=== PATIENT | male | born 1950 ===

== ENCOUNTER 2018-10-11 10:38 | Emergency (ER) | payer MEDICARE, BC ==
[2018-10-11] MEDS ORDERED: Lidocaine 1% MPF* 2 ML VIAL INJ ONE (12:03)
[2018-10-11] MEDS ORDERED: Lidocaine 2% MPF* 2 ML VIAL ONE (12:06)
[2018-10-11 12:32] VITALS: BP 169/89
--- NOTE | 2018-10-11 14:52 | ED ---
Laceration/Wound HPI - HPI Summary HPI Summary: Patient is a 68-year-old male presenting to the ED with an avulsion injury from a miter saw left index finger. Bleeding is well controlled on arrival. He denies any blood thinners. He states 15 years ago he had a partial amputation/ avulsion to the distal tip of this same finger and subsequently needed surgery. He denies any numbness or tingling. He is endorsing a 5/10 pain. He declines any pain medications, but is asking for a digital block. 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 Tetanus is arty up-to-date as of 2 years ago. - History of Current Complaint Stated Complaint: FINGER INJURY PER PT Time Seen by Provider: 10/11/18 10:47 Hx Obtained From: Patient Mechanism of Injury: Sharp/Blunt Trauma Onset/Duration: Sudden Onset Aggravating: Movement Alleviating: Compression Timing: Constant Onset Severity: Mild Current Severity: Mild Pain Intensity: 2 Pain Scale Used: 0-10 Numeric Associated Signs & Symptoms: Negative - Allergy/Home Medications Allergies/Adverse Reactions: Allergies Allergy/AdvReac Type Severity Reaction Status Date / Time latex Allergy Rash Verified 10/11/18 11:02 Home Medications: Home Medications amLODIPine TAB* [Norvasc 5 mg TAB*] 10 mg PO DAILY 10/11/18 [History Confirmed 10/11/18] PMH/Surg Hx/FS Hx/Imm Hx Previously Healthy: Yes Endocrine/Hematology History: Denies: Hx Diabetes Cardiovascular History: Reports: Hx Hypertension Denies: Hx Pacemaker/ICD GI History: Reports: Hx Gastroesophageal Reflux Disease - hx of- resolved History: Denies: Hx Renal Disease Sensory History: Reports: Hx Contacts or Glasses - glasses but doesn't wear very often Denies: Hx Hearing Aid Opthamlomology History: Reports: Hx Contacts or Glasses - glasses but doesn't wear very often Psychiatric History: Denies: Hx Panic Disorder - Cancer History Hx Chemotherapy: No - Surgical History Surgery Procedure, Year, and Place: LAMINECTOMY L2-L5 S1 . LEFT LEG ORIF. 2006 TORN RIGHT SHOULDER ROTATOR CUFF REPAIR Hx Anesthesia Reactions: No - Immunization History Hx Pertussis Vaccination: No Immunizations Up to Date: Yes Infectious Disease History: No Infectious Disease History: Denies: Traveled Outside the [place] in Last 30 Days - Social History Occupation: Unemployed Lives: With Family Alcohol Use: None Hx Substance Use: No Substance Use Type: Reports: None Smoking Status (MU): Never Smoked Tobacco Review of Systems Negative: Fever, Chills, Fatigue, Skin Diaphoresis Negative: Palpitations, Chest Pain Negative: Shortness Of Breath, Cough Genitourinary: Negative Positive: no symptoms reported, see HPI Negative: Arthralgia, Myalgia Skin: Negative All Other Systems Reviewed And Are Negative: Yes Physical Exam Triage Information Reviewed: Yes Vital Signs On Initial Exam: Initial Vitals Temp Pulse Resp BP Pulse Ox 97.6 F 86 20 190/108 98 10/11/18 10:40 10/11/18 10:40 10/11/18 10:40 10/11/18 10:40 10/11/18 10:40 Vital Signs Reviewed: Yes Appearance: Positive: Well-Appearing, Well-Nourished Skin: Positive: Skin Color Reflects Adequate Perfusion, Other - avulsion to the fingertip of L index Head/Face: Positive: Normal Head/Face Inspection Eyes: Positive: EOMI, Conjunctiva Clear Neck: Positive: Supple, No Lymphadenopathy Respiratory/Lung Sounds: Positive: Clear to Auscultation, Breath Sounds Present Cardiovascular: Positive: RRR, Pulses are Symmetrical in both Upper and Lower Extremities Musculoskeletal: Positive: Strength/ROM Intact Neurological: Positive: Sensory/Motor Intact, Alert, Oriented to Person Place, Time, Speech Normal Psychiatric: Positive: Affect/Mood Appropriate Diagnostics - Vital Signs Vital Signs Temp Pulse Resp BP Pulse Ox 10/11/18 12:31 98.3 F 62 14 169/89 99 10/11/18 10:40 97.6 F 86 20 190/108 98 - Laboratory Lab Statement: Any lab studies that have been ordered have been reviewed, and results considered in the medical decision making process. Laceration Repair Course/Dx - Course Course Of Treatment: During the course of treatment, the patient is evaluated for left index finger avulsion/amputation. Bleeding is well-controlled on arrival. 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 Denies any blood thinners. He is stating a 5/10 pain. Unsure if bone is involved. Tetanus is a 30 up to date. X-ray obtained which shows: Indication tip of second finger at level of diaphysis of the distal phalanx. Overlying soft tissue swelling and skin contoured deformity with subcutaneous emphysema and 2 mm retained bone fragment adjacent to the osseous imitations site. Normal articular alignment. Osteoarthritis. Digital block obtained with lidocaine 2% without epi. Patient tolerated well. Cleansed wound thoroughly with jet irrigation and 120 cc's normal saline. Surgicel gauze wrapped with tube gauze and Coban. Patient declined finger splint as he has one at home he states he made himself. I have advised him to take the Coban off this afternoon/evening. If the area begins to bleed, he will rewrap with new gauze and Coban. If it continues to bleed he will come to the ED. He will follow-up with Dr. Sinclair or Dr. Gates in the clinic this week. He understands return precautions and voices no concerns at this time. He is given Keflex 3 times daily 7 days. - Differential Dx Differental Diagnoses: Avulsion, Other - The patient - Clinical Impression Provider Diagnoses: Finger avulsion Discharge - Sign-Out/Discharge Documenting (check all that apply): Patient Departure Patient Received Moderate/Deep Sedation with Procedure: No - Discharge Plan Condition: Stable Disposition: HOME Prescriptions: Amoxicillin/Clavulanate TAB* [Augmentin TAB 875*] 875 mg PO BID #14 tab Patient Education Materials: Finger Amputation (ED) Referrals: Sherif Sinclair MD [Medical Doctor] - Adal Lazaro MD [Primary Care Provider] - Additional Instructions: Please follow-up with Dr. Sinclair or Dr. Gates Keep bandage applied until follow-up Tylenol 650 mg 3 times daily for discomfort If bleeding persists, he may return to the ED or reapply the bandage - Billing Disposition and Condition Condition: STABLE Disposition: Home
== END 2018-10-11 12:31 | disposition home or self-care (01) ==
LOC: ED 10:38
DX: S61.211A Laceration without foreign body of left index finger without damage to nail, initial encounter (principal); I10 Essential (primary) hypertension; W29.8XXA Contact with other powered hand tools and household machinery, initial encounter; Y92.9 Unspecified place or not applicable
CPT/HCPCS: 12001; 73140; 99282

== ENCOUNTER → 2018-10-14 10:26 | Day surgery (SDC) | payer MEDICARE, BC ==
[~2018-10-14 10:26] MED LIST: Bupivacaine 0.25% SDV PF* 10 ML VIAL INJ ONE; Lidocaine 1%* 5 ML VIAL ONE; Midazolam* 1 MG/ML 5 ML VIAL (5 MG) ONE; Naloxone* 0.4 MG/ML 1 ML VIAL IV PRN; Propofol* 10 MG/ML 20 ML BTL ONE; ceFAZolin 2 GM PREMIX in ORs 2 GM/50 ML BAG IVPB ONE; fentaNYL* 50 MCG/ML 2 ML VIAL (100 MCG VIAL) ONE
[2018-10-14 15:51] VITALS: BP 158/94
--- NOTE | 2018-10-14 23:57 | OP ---
OPERATIVE REPORT: DATE OF OPERATION: 10/14/18 DATE OF : 48 SURGEON: Helder Reyes MD. AUTOMATED ACCESS SYSTEMS TECHNICIAN: AMADOU Bowman. A physician pastry assistant was required for the length of the procedure for assistance with positioning, retraction, and closure. ANESTHESIOLOGIST: Pamela Elena MD. ANESTHESIA: Monitored anesthesia care, local anesthesia consisting of a 1:1 ratio of lidocaine 1% and Marcaine 0.5% without epinephrine. PRE-OP DIAGNOSES: 1. Left index finger traumatic amputation through the distal phalanx. 2. Left index finger open wound. POST-OP DIAGNOSES: 1. Left index finger traumatic amputation through the distal phalanx. 2. Left index finger open wound. PROCEDURES: 1. Left index finger revision, secondary amputation at the level of the DIP joint. 2. Irrigation and debridement, left index finger. ANTIBIOTICS: Ancef 2 g IV. IV FLUIDS: Lactated Ringer's 1200 cc. TOURNIQUET TIME: Tourniquet applied with a Tourni-Cot size medium, for 29 minutes. [id number] time was 43 minutes. RADIATION EXPOSURE: Four pictures taken with the mini C-arm. SPECIMEN: Bone, distal phalanx, and nail plate sent to Pathology. IMPLANTS: None. COMPLICATIONS: None. ESTIMATED BLOOD LOSS: Minimal. INDICATIONS FOR PROCEDURE: The patient is a 68-year-old man, who was working with a planer, with wood when he amputated the tip of his finger 3 days preoperatively on 10/11/18. The patient had an open wound. The patient was seen at the emergency room and referred to Orthopedic Surgery. Of note, the patient had a prior partial amputation at the tip of this finger in the distant past and he had never been comfortable with the feel or look of the finger after that. The patient presented to clinic. The patient was interested in a closure and acknowledged the need for amputation of some bone to get a closure with a good wound healing capacity. Discussed risks and potential complications including bleeding, infection, nerve or blood vessel injury, neuroma formation, failure of wound healing, need for revision surgery. DESCRIPTION OF PROCEDURE: In the preoperative holding, the patient signed a written consent. Operative finger was marked in preoperative holding. The patient was taken back to the operating room and kept on the stretcher. Hand table was applied. Some light sedation was started. A mini time-out was performed. Local anesthesia was infused about the digital nerves, radial and ulnar, flexor tendon sheath block as well as dorsal subcutaneous. We then prepped and draped the left index finger. Surgical time-out performed. Applied a Tourni-Cot to help with bleeding. Inspected the distal fingertip, left index finger. There was still some most proximal nail plate in place, either on the radial or ulnar side. This was removed. There was some irrigation and light debridement of the distal fingertip. Clearly the large defect of skin required some removal of bone to close. I removed some nail bed after removing the nail plate. No more nail bed or plate visible. I next grab hold of the distal phalanx with an Adson pick-ups and dissected around it, radial, ulnar, volar, dorsal. I released the ulnar and radial collateral ligaments with an 11 blade. A retractor or the blade pulled through some friable skin dorsally creating a longitudinal slit in the skin. We noted that. To prevent that slit from propagating, I placed a retention stitch with a nylon 4-0 suture. Next, inspected the head of the middle phalanx. I removed some of the bone from its most radial and ulnar aspects to contour just the slightest bit. I removed articular cartilage with a curette and a small rongeur. We next irrigated with a long bulb syringe. Wound looked very fresh and clean at this point. There was a nice volar flap. Skin looked repairable to skin tension free with much skin and subcutaneous tissue distal to the location of the bone. Essentially, I did not need to remove any skin which allowed me to maximize the length of this digit. Next, closed the flap with simple stitches using nylon 4-0 suture. Including the slit that propagated during the case, this created sort of a T-shaped closure. Earlier in the case, the Tourni-Cot had been dropped to see how well those dorsal flaps were perfused and they appeared to be very well perfused. Next, placed Adaptic followed by 2x2s, followed by Diana, followed by Bobby. It should be noted that I took several mini C-arm images after debriding the bone of the middle phalanx to be comfortable with the shape of the head. It was mostly symmetric. The patient was lightened of sedation and transferred to the PACU. DISPOSITION: The patient will follow up in clinic in 6 to 10 days postop. He will remove dressing 3 to 4 days postoperatively and follow routine wound care instructions. He should keep that wound covered until followup in clinic, between showers. Antibiotic was prescribed as was some pain medication [id number]/[facility] #: [id number] SAMUEL
== END | disposition home or self-care (01) ==
LOC: OR 10:26
PROVIDERS: ATTEND Orthopaedic Surgery
DX: S68.621A Partial traumatic transphalangeal amputation of left index finger, initial encounter (principal); W31.2XXA Contact with powered woodworking and forming machines, initial encounter; Y93.89 Activity, other specified; Y92.9 Unspecified place or not applicable; I10 Essential (primary) hypertension
CPT/HCPCS: 88300; 88304; 88311; J0690; J2250; J2704; J3010; J3490